=== PATIENT | female | born 1980 | race Two or more races ===

== ENCOUNTER 2018-01-28 02:36 | Emergency (ER) | payer SELFPAY | END 2018-01-28 06:09 | disposition home or self-care (01) | LOC: ER 02:36 | DX: S00.83XA Contusion of other part of head, initial encounter (principal); Y08.89XA Assault by other specified means, initial encounter; Y93.89 Activity, other specified; Y92.89 Other specified places as the place of occurrence of the external cause; Y99.8 Other external cause status | CPT/HCPCS: 70450; 70486; 99284-25 ==

== ENCOUNTER 2019-04-02 22:29 | Emergency (ER) | payer SELFPAY ==
[~2019-04-02] VITALS: Ht 157.5 cm; Wt 106.6 kg
[2019-04-02 22:30] VITALS: BP 148/113
[2019-04-02] MEDS ORDERED: MUPI22OI2 TP (23:36)
[2019-04-02] MEDS ORDERED: CLIN300C8 PO (23:36)
--- NOTE | 2019-04-02 23:37 | PHYS DOC ---
Past Medical History Past Medical History: No Pertinent History Past Surgical History: Cholecystectomy Alcohol Use: None Drug Use: None Adult General Chief Complaint Chief Complaint: INSECT BITE HPI HPI Patient is a 38 year old female with no significant past medical history who presents with erythema and pain over her right, lower leg that began one week ago. The patient is concerned that her symptoms are due to an insect bite. She does not remember any initial event or having seen any bugs biting her. However, she states there are many insects around her house. The pain was initially sharp and a 9 out of 10 in severity. Currently, her pain is a 7/10. Initially, there were clear vesicles surrounded by a 2-3 inch erythematous patch. The vesicles have since ruptured and the erythema has become progressively larger. She is now complaining of tingling and intermittent, sharp pains around the erythematous area. She denies any fever but admits to chills for the last 3 days. She admits to nausea but denies vomiting. She states she got several patches of smaller vesicles over her left arm 2 days ago that self resolved after 1 day. She also admits to wrist and knee pain bilaterally since her lower leg lesion appeared. She denies any new clothes, soaps, or detergents. She states this has never happened before to her. Review of Systems Review of Systems Constitutional: Denies fever but admits chills Eyes: Denies redness or eye pain HENT: Denies nasal congestion or sore throat Respiratory: Denies cough or shortness of breath Cardiovascular: Denies chest pain or palpitations GI: Denies abdominal pain, reports intermittent nausea, but no vomiting : Denies dysuria or hematuria Musculoskeletal: Denies back pain or joint pain Integument: Erythematous, ulcerated skin lesion over right lateral, proximal, tibia. Neurologic: Denies headache, focal weakness or sensory changes Complete systems were reviewed and found to be within normal limits, except as documented in this note. Current Medications Current Medications Current Medications Medications (Trade) Dose Ordered Sig/Ezio Start Time Stop Time Status Last Admin Dose Admin Clindamycin HCl (Cleocin) 300 mg 1X ONCE 04/02/19 23:45 04/02/19 23:46 DC 04/02/19 23:48 300 MG Dexamethasone (Decadron) 10 mg 1X ONCE 04/02/19 23:45 04/02/19 23:46 DC 04/02/19 23:49 10 MG Ketorolac Tromethamine (Toradol 30mg Vial) 30 mg 1X ONCE 04/02/19 23:45 04/02/19 23:46 DC 04/02/19 23:48 30 MG Neomycin/ Polymyxin/ Bacitracin (Triple Antibiotic Ointment) 1 pkt 1X ONCE 04/02/19 23:45 04/02/19 23:46 DC 04/02/19 23:49 1 PKT Allergies Allergies Allergies Coded Allergies Type Severity Reaction Last Updated Verified No Known Drug Allergies 01/28/18 No Physical Exam Physical Exam Constitutional: Well developed, well nourished, no acute distress, non-toxic appearance Eyes: PERRL, EOMI, conjunctiva normal, no discharge Cardiovascular: Heart rate normal, regular rhythm Lungs & Thorax: Bilateral breath sounds clear to auscultation, no wheezing Abdomen: Soft, no tenderness Skin: 3 x 4 inch erythematous patch with central, ruptured vesicles over right proximal tibia. Extremities: No tenderness, ROM intact, no edema Neurologic: Alert and oriented X 3, normal motor function, normal sensory function, no focal deficits noted Psychologic: Affect normal, judgement normal, mood normal Current Patient Data Vital Signs Vital Signs Date Time Temp Pulse Resp B/P (MAP) Pulse Ox O2 Delivery O2 Flow Rate FiO2 04/02/19 22:30 98.4 91 18 148/113 (125) 97 Room Air 98.4 EKG EKG [] Radiology/Procedures Radiology/Procedures [] Course & Med Decision Making Course & Med Decision Making Patient is a 38-year-old female who presents with concern for an insect bite over her right lower leg. The patient was counseled on proper wound care for her leg. The patient was given 1 dose of Toradol 30 mg IM in the emergency department for pain control. She was also given 1 dose of Decadron in the ED for inflammation. Patient given prescriptions for mupirocin ointment, and clindamycin 300 mg 3 times a day. Patient stable for discharge with outpatient follow-up with PCP. Discussed findings and plan with patient and family, who acknowledge understanding and agreement. Dragon Disclaimer Dragon Disclaimer This electronic medical record was generated, in whole or in part, using a voice recognition dictation system. Departure Departure Impression: Primary Impression: Insect bite Disposition: HOME, SELF-CARE Condition: STABLE Referrals: NO PCP (PCP) Patient Instructions: Insect Bite, [id number] Scripts Mupirocin (MUPIROCIN OINTMENT) 22 Gm Oint...g. 1 SHAMIKA TP TID for WOUND CARE, #1 TUBE Prov: JOSUÉ LIND DO 04/02/19 Clindamycin Hcl (CLINDAMYCIN HCL) 300 Mg Capsule 1 CAP PO TID for Infection, #30 CAP Prov: JOSUÉ LIND DO 04/02/19 Problem Qualifiers Primary Impression: Insect bite Encounter type: initial encounter Site of insect bite: lower leg Laterality: right Qualified Codes: S80.861A - Insect bite (nonvenomous), right lower leg, initial encounter; W57.XXXA - Bitten or stung by nonvenomous insect and other nonvenomous arthropods, initial encounter JOSUÉ LIND DO Apr 02, 2019 23:37
[2019-04-02] MEDS ORDERED: CLINDAMYCIN HCL 150 MG CAPSULE. PO ONE (23:45)
[2019-04-02] MEDS ORDERED: KETOROLAC 30 MG/ML VIAL. IM ONE (23:45)
[2019-04-02] MEDS ORDERED: NEOMY/BACITR/POLYMYXIN OINT PACKET. TP ONE (23:45)
[2019-04-02] MEDS ORDERED: DEXAMETHASONE 4 MG TABLET PO ONE (23:45)
== END 2019-04-02 23:50 | disposition home or self-care (01) ==
LOC: ER 22:29
DX: S80.861A Insect bite (nonvenomous), right lower leg, initial encounter (principal); L53.8 Other specified erythematous conditions; Z90.49 Acquired absence of other specified parts of digestive tract; W57.XXXA Bitten or stung by nonvenomous insect and other nonvenomous arthropods, initial encounter; Y93.89 Activity, other specified; Y92.89 Other specified places as the place of occurrence of the external cause; Y99.8 Other external cause status
CPT/HCPCS: 96372; 99284; J1885; J8540